=== PATIENT | male | born 1990 | race African-American/Black ===

== ENCOUNTER 2020-07-15 14:21 | Emergency (ER) | payer MEDICAID ==
[~2020-07-15] VITALS: Ht 175.3 cm; Wt 98.4 kg
--- NOTE | 2020-07-15 14:43 | Emergency Room Report ---
History of Present Illness General Chief Complaint: Asthma Source: Patient Present Illness HPI Disclaimer: Please note that this report is being documented using DRAGON technology. This can lead to erroneous entry secondary to incorrect interpretation by the dictating instrument. HPI: 29-year-old male presents for evaluation of wheezing. History of asthma has been without his DuoNeb solutions and albuterol inhaler for the past few days. He reports increasing shortness of breath and wheezing. Reports cough with some phlegm production. Denies fever or chills. Denies sore throat, nasal congestion, nausea, vomiting. Last Covid test 1 month ago was negative. Denies any sick contacts. Asking for refill of his gabapentin which he takes for neuropathy as well as he has been able to see his PMD due to low availability of appointments in the COVID-19 pandemic. Continues to smoke PMH: Asthma PSH: Orthopedic surgeries Allergies: Reviewed Social Hx: Tobacco use Allergies: Coded Allergies: No Known Allergies (Unverified , 07/15/20) COVID-19 Screening Contact w/high risk pt: No Experienced COVID-19 symptoms?: Yes COVID-19 Testing performed BOTTOM BLEACHER: No Nursing Documentation-PMH Past Medical History: No History, Except For Hx Cardiac Problems: Yes - open heart surgery Hx Asthma: Yes Hx Neurological Problems: Yes - neuropathy Review of Systems All Other Systems: negative except mentioned in HPI Physical Exam Vital Signs Date Time Temp Pulse Resp B/P (MAP) Pulse Ox O2 Delivery O2 Flow Rate FiO2 07/15/20 14:23 98.4 88 19 138/74 (95) 93 Room Air General: Awake and alert, no acute distress HEENT: NC/AT. EOMI. Resp: Normal work of breathing. Expiratory wheezes bilaterally. Nonproductive cough during exam. Faint crackles. Skin: Intact. No abrasions, laceration or rash over the exposed skin MSK: Normal tone and bulk. Moving all extremities. No obvious deformity. Neuro: Awake and alert. Mentating appropriately Medical Decision Making Diagnostic Impression: Primary Impression: Medication refill Additional Impression: Asthma ER Course 29-year-old male presents for evaluation of wheezing and medication refill. Exam history consistent with mild to moderate asthma exacerbation. No infiltrate on x-ray. Patient treated with prednisone and albuterol. We will refill his medications. Wheezing improved. Stable for outpatient follow-up. Return precautions discussed. He understands and agrees with this treatment plan. Chest X-Ray Diagnostic Results Chest X-Ray Diagnostic Results : Chest X-Ray Ordered: Yes # of Views/Limited/Complete: 1 View Indication: Shortness of Breath EP Interpretation: Yes Interpretation: no consolidation, no effusion, no pneumothorax, no acute cardiopulmonary disease Impression: No acute disease Electronically Signed by: Electronically signed by Dr. Chalino Barrientos MD Last Vital Signs Date Time Temp Pulse Resp B/P (MAP) Pulse Ox O2 Delivery O2 Flow Rate FiO2 07/15/20 14:23 98.4 88 19 138/74 (95) 93 Room Air Disposition: HOME, SELF-CARE Condition: Improved Scripts Prednisone* (PREDNISONE*) 20 Mg Tablet 40 MG ORAL DAILY for 5 Days, #10 TAB Prov: Chalino Barrientos MD 07/15/20 Gabapentin (Neurontin) 300 Mg Capsule 300 MG ORAL BEDTIME, #14 CAP 0 Refills Prov: Chalino Barrientos MD 07/15/20 Albuterol Sulfate (VENTOLIN HFA) 18 Gm Hfa.aer.ad 1 PUFF INH EVERY 6 HOURS, #18 GM 0 Refills Prov: Chalino Barrientos MD 07/15/20 Albuterol Sulfate* (ALBUTEROL SULFATE HHN*) 2.5 Mg/3 Ml Vial.neb 2.5 MG HHN Q4H PRN for Shortness of Breath, #25 VIAL Prov: Chalino Barrientos MD 07/15/20 Chalino Barrientos MD Jul 15, 2020 14:43
[2020-07-15] MEDS ORDERED: NEURONTIN300 MG ORAL (14:46)
[2020-07-15] MEDS ORDERED: ALBUTEROL2.5 MG/3 M HHN (14:46)
[2020-07-15] MEDS ORDERED: PREDNISONE20 MG ORAL (14:46)
[2020-07-15] MEDS ORDERED: VENTOLIN HFA18 GM INH (14:46)
--- NOTE | 2020-07-15 15:00 | NUR ---
ED Nurse Note:pt. c/o asthma exacerbation for last 3 days, cough, no fever, VSS
[2020-07-15] MEDS: Albuterol/Ipratropium 3ml neb HHN SCH ×3 (15:18→15:39)
--- NOTE | 2020-07-15 15:28 | Diagnostic Imaging Report ---
Indication: Shortness of breath Technique: One view of the chest Comparison: none Findings: Lungs and pleural spaces are clear. Heart size is normal. Impression: No acute process
[2020-07-15 15:55] VITALS: BP 126/78
== END 2020-07-15 18:00 | disposition home or self-care (01) ==
LOC: EMR 14:50
DX: J45.909 Unspecified asthma, uncomplicated (principal); Z76.0 Encounter for issue of repeat prescription; G62.9 Polyneuropathy, unspecified; F17.200 Nicotine dependence, unspecified, uncomplicated
CPT/HCPCS: 71045; 94640; J7512; Z7502; 99283; J7620